=== PATIENT | female | born 1985 | race Caucasian/White ===

== ENCOUNTER 2017-01-24 11:11 | Emergency (ER) | payer OTHER ==
[~2017-01-24] VITALS: Ht 154.9 cm; Wt 63.5 kg
[2017-01-24] MEDS ORDERED: CLON0.5T PO (11:29)
[2017-01-24] MEDS ORDERED: ALBU0.63 IH (11:29)
[2017-01-24] MEDS ORDERED: FLUO10CA26 PO (11:29)
--- NOTE | 2017-01-24 12:07 | NUR ---
pending MD evaluation at this time
[2017-01-24] MEDS: ALBUTEROL SULFATE 2.5 MG/3 ML NEBU NEB ONE (12:29)
[2017-01-24] MEDS: IPRATROPIUM BROMIDE 0.5 MG/2.5 ML NEBU NEB ONE (12:29)
[2017-01-24] MEDS: IV NORMAL SALINE 1000 ML BAG IV ONE (12:31)
[2017-01-24] MEDS ORDERED: ALBUTEROL SULFATE 2.5 MG/3 ML NEBU ONE (12:34)
[2017-01-24] MEDS ORDERED: IPRATROPIUM BROMIDE 0.5 MG/2.5 ML NEBU ONE (12:34)
[2017-01-24] MEDS: LORAZEPAM 0.5 MG TABLET PO ONE (12:37)
[2017-01-24] MEDS: predniSONE 20 MG TABLET PO ONE (12:40)
[2017-01-24] MEDS ORDERED: LORAZEPAM 1 MG TABLET ONE (12:42)
[2017-01-24 12:46] LABS: BASOPHILS # (AUTO) 0.2 K/uL (0.0-0.2); BASOPHILS % (AUTO) 2.6 % (0.0-2.0); EOSINOPHILS # (AUTO) 0.6 K/uL (0.0-0.7); EOSINOPHILS % (AUTO) 6.7 % (0.0-7.0); HEMATOCRIT 40.3 % (37.0-47.0); HEMOGLOBIN 13.5 g/dL (12.0-16.0); LYMPHOCYTES # (AUTO) 2.4 K/uL (0.8-4.8); LYMPHOCYTES % (AUTO) 25.2 % (20.5-51.5); MEAN CORPUSCULAR HEMOGLOBIN 30.3 uug (27.0-31.0); MEAN CORPUSCULAR HGB CONC 33 g/dL (32.0-37.0); MEAN CORPUSCULAR VOLUME 90.9 fL (81.0-99.0); MONOCYTES # (AUTO) 0.5 K/uL (0.1-1.30); MONOCYTES % (AUTO) 4.9 % (0.0-11.0); NEUTROPHILS # (AUTO) 5.7 K/uL (1.8-8.9); NEUTROPHILS % (AUTO) 60.6 % (38.5-71.5); PLATELET COUNT (AUTO) 307 K/uL (150-450); RED BLOOD CELL COUNT(AUTO) 4.44 MIL/uL (4.20-5.40); RED CELL DISTRIBUTION WIDTH 12.6 % (11.5-14.5); WHITE BLOOD COUNT (AUTO) 9.4 K/uL (4.0-11.2)
[2017-01-24] MEDS ORDERED: predniSONE 50 MG TABLET ONE (12:47)
[2017-01-24] MEDS ORDERED: predniSONE 10 MG TABLET ONE (12:47)
[2017-01-24 12:56] LABS: CALCIUM 8.7 mg/dL (8.5-10.1); CREATININE 0.9 mg/dL (0.6-1.3)
[2017-01-24 13:02] LABS: ALBUMIN 3.4 g/dL (3.4-5.0); BILIRUBIN,DIRECT 0.1 mg/dL (0.0-0.2); BILIRUBIN,TOTAL 0.4 mg/dL (0.2-1.0); TOTAL PROTEIN, SERUM 6.5 g/dL (6.4-8.2)
--- NOTE | 2017-01-24 14:05 | NUR ---
Patient discharged to home in stable conditon. Written and verbal after care instructions given to patient and family. Patient and family verbalized understanding of instructions. PATIENT IS PAIN FREE AT THIS TIME.
== END 2017-01-24 14:09 | disposition home or self-care (01) ==
LOC: ER 11:11
DX: J45.901 Unspecified asthma with (acute) exacerbation (principal); F41.9 Anxiety disorder, unspecified
CPT/HCPCS: 36415; 71010; 80048; 80076; 84484; 85025; 85379; 94644; 99285; A4663; J3590; J7030; J7512 ×2; 70030-TC